=== PATIENT | male | born 1970 | race Caucasian/White ===

== ENCOUNTER 2018-07-28 01:13 | Inpatient (IN) | payer OTHER ==
[~2018-07-28] VITALS: Ht 175.3 cm; Wt 156.5 kg
[2018-07-28 01:25] VITALS: BP 136/81
--- NOTE | 2018-07-28 01:25 | NUR ---
BILL RECAPITULATION CLERK ADMISSION NOTES RECEIVED PATIENT DIRECT ADMIT FROM FROM [facility] WITH DX. CHEST PAIN. PATIENT IS ALERT AND ORIENTED X4, VERBALLY RESPONSIVE, ABLE TO MAKE NEEDS KNOWN. ([place]) AT BEDSIDE. BREATHING EVEN AND UNLABORED. NO SOB NOTED. LUNGS CLEAR TO AUSCULTATION. TOLERATING ROOM AIR. NO COMPLAINTS OF PAIN OR DISCOMFORT. NO FACIAL GRIMACING. IV ON LEFT HAND G#20 INTACT AND PATENT. SKIN DRY AND WARM TO TOUCH. AFEBRILE. EXPLAINED THE PROCESS OF ADMISSION - SKIN ASSESSMENT RENDERED. PER PATIENT HE HAS NO SKIN ISSUES - NO OBVIOUS SKIN ISSUES NOTED ALSO. ORIENTED TO THE USE OF UNIT AMENITIES. BELONGINGS ACCOUNTED FOR. WILL TAKE MEDICATIONS HOME. VITAL SIGNS STABLE. ALL OTHER NEEDS ATTENDED TO. SAFETY MEASURES IN PLACE. CALL LIGHT WITHIN REACH. WILL CONTINUE TO MONITOR.
[2018-07-28] MEDS ORDERED: LOSA1TAB42 PO (02:05)
[2018-07-28] MEDS ORDERED: AMLO5TAB9 PO (02:05)
[2018-07-28] MEDS ORDERED: ATOR40TA PO (02:05)
[2018-07-28] MEDS ORDERED: ASPI-1169 PO (02:05)
[2018-07-28] MEDS ORDERED: Z GUARD REMEDY 2 OZ OINT TP PRN (02:30)
[2018-07-28] MEDS ORDERED: HYDROCODONE/APAP 5/325MG 1 EACH TABLET PO PRN (02:30)
[2018-07-28] MEDS ORDERED: MAG HYDROX/AL HYDROX/SIMETH 30 ML UDC PO PRN (02:30)
[2018-07-28] MEDS ORDERED: ONDANSETRON HCL/PF 4 MG/2 ML VIAL IVP PRN (02:30)
[2018-07-28] MEDS ORDERED: ACETAMINOPHEN 325 MG TABLET PO PRN (02:30)
[2018-07-28] MEDS ORDERED: MAGNESIUM HYDROXIDE 30 ML UDC PO PRN (02:30)
[2018-07-28 04:00] VITALS: BP 138/77
[2018-07-28 04:00] LABS: BASOPHILS # (AUTO) 0.1 /CMM (0.0-0.2); BASOPHILS % (AUTO) 0.8 % (0.0-2.0); EOSINOPHILS % (AUTO) 3.5 % (0.0-6.0); HEMATOCRIT 46 % (39-51); HEMOGLOBIN 15.5 g/dL (13.5-17.5); LYMPHOCYTES # (AUTO) 3.3 /CMM (0.8-4.8); LYMPHOCYTES % (AUTO) 32.5 % (20.0-44.0); MEAN CORPUSCULAR HGB CONC 34 g/dl (31.0-36.0); MEAN CORPUSCULAR VOLUME 83 fL (80-96); MONOCYTES # (AUTO) 0.7 /CMM (0.1-1.30); MONOCYTES % (AUTO) 7.5 % (2.0-12.0); NEUTROPHILS # (AUTO) 5.6 /CMM (1.8-8.9); NEUTROPHILS % (AUTO) 55.7 % (43.0-81.0); PLATELET COUNT (AUTO) 205 /CMM (150-450); RED BLOOD CELL COUNT(AUTO) 5.49 MIL/uL (4.5-6.0)
[2018-07-28] MEDS ORDERED: ENOXAPARIN SODIUM 40 MG/0.4 ML DISP.SYRIN SQ ONE (04:00)
[2018-07-28 04:09] LABS: CALCIUM, SERUM 8.6 mg/dL (8.5-10.1); CARBON DIOXIDE 25 mmol/L (21-32); CHLORIDE 105 mmol/L (98-107); CREATININE 1.3 mg/dL (0.6-1.3); GLUCOSE 120 mg/dL (74-106); POTASSIUM 3.4 mmol/L (3.5-5.1); SODIUM SERUM 139 mmol/L (136-145); UREA NITROGEN, BLOOD 15 mg/dL (7-18)
[2018-07-28 04:15] LABS: ALANINE AMINOTRANSFERASE 47 U/L (12-78); ALBUMIN 2.9 g/dL (3.4-5.0); ALKALINE PHOSPHATASE 83 U/L (46-116); ASPARTATE AMINOTRANSFERASE 15 U/L (15-37); BILIRUBIN,TOTAL 0.4 mg/dL (0.2-1.0); TOTAL PROTEIN, SERUM 6.8 g/dL (6.4-8.2)
--- NOTE | 2018-07-28 06:53 | NUR ---
[employer] SPOTTER CLOSING NOTES PATIENT RESTING IN BED. NO ACUTE CHANGES THROUGHOUT SHIFT. BREATHING EVEN AND UNLABORED. NO SOB NOTED. TOLERATING ROOM AIR. NO COMPLAINTS OF PAIN OR DISCOMFORT. NO FACIAL GRIMACING. IV ON LEFT HAND INTACT AND PATENT. SKIN DRY AND WARM TO TOUCH. AFEBRILE ALL OTHER NEEDS ATTENDED TO. SAFETY MEASURES IN PLACE. CALL LIGHT WITHIN REACH. WILL ENDORSE TO ONCOMING NURSE FOR TANI.
--- NOTE | 2018-07-28 07:37 | NUR ---
RURAL MAIL CARRIER NOTES PATIENT RESTING IN BED, ALERT AND ORIENTED X4. NO RESPIRATORY DISTRESS NOTED, BREATHING EVEN AND UNLABORED. SKIN WARM TO TOUCH. IV SL ON LT HAND #20G, PATENT AND INTACT, NO REDNESS, NO INFILTRATION. PATIENT'S BED ON LOW AND LOCKED POSITION. CALL LIGHT WITHIN REACH. WILL CONTINUE TO MONITOR.
[2018-07-28 08:38] VITALS: BP 144/76
[2018-07-28] MEDS ORDERED: ASPIRIN 81 MG TAB.CHEW PO SCH (09:00)
[2018-07-28] MEDS ORDERED: HYDROCHLOROTHIAZIDE 25 MG TABLET PO SCH (09:00)
[2018-07-28] MEDS ORDERED: LOSARTAN POTASSIUM 50 MG TABLET PO SCH (09:00)
[2018-07-28] MEDS ORDERED: AMLODIPINE BESYLATE 5 MG TABLET PO SCH (09:00)
[2018-07-28] MEDS ORDERED: HYDROCHLOROTHIAZIDE 12.5 MG CAPSULE PO SCH (09:00)
[2018-07-28] MEDS ORDERED: Medication Not On Formulary EA (Losartan/Hydrochlorothiazide (Losartan-Hctz 100-12.5 Mg PO SCH (09:00)
[2018-07-28] MEDS ORDERED: POTASSIUM CHLORIDE 20 MEQ TAB.PRT.SR PO SCH (10:30)
[2018-07-28] MEDS ORDERED: IOHEXOL-350 100 ML VIAL IV ONE (10:41)
[2018-07-28] MEDS ORDERED: IV NS 0.9% 250 ML IV ONE (10:41)
[2018-07-28] MEDS ORDERED: CT SWABBABLE VALVE TRANS SET 1 EA INFUS.SET MC ONE (10:41)
[2018-07-28] MEDS ORDERED: METOPROLOL TARTRATE INJ 5 MG/5 ML AMPUL ONE (10:41)
[2018-07-28] MEDS ORDERED: NITROGLYCERIN 4.9 GM SPRAY ONE (10:47)
[2018-07-28] MEDS ORDERED: METOPROLOL TARTRATE INJ 5 MG/5 ML AMPUL IVP ONE (11:00)
[2018-07-28] MEDS ORDERED: NITROGLYCERIN 4.9 GM SPRAY SL ONE (11:00)
[2018-07-28] MEDS ORDERED: IV NS 0.9% 500 ML IV ONE (11:00)
--- NOTE | 2018-07-28 11:45 | NUR ---
MS/RN - [place] IV/NITRO MEDICATIONS FOR CTCA PROCEDURE.
[2018-07-28] MEDS: METOPROLOL TARTRATE 50 MG TABLET PO SCH ×2 (12:00→18:00)
[2018-07-28] MEDS ORDERED: POTASSIUM CHLORIDE 20 MEQ TAB.PRT.SR PO ONE (13:00)
[2018-07-28 17:31] VITALS: BP 118/63
[2018-07-28 18:00] VITALS: BP 118/63
--- NOTE | 2018-07-28 18:06 | NUR ---
MS/RN - Discharge Patient alert and oriented throughout the shift, CTCA is negative, discharged home in stable condition, remain afebrile, denies chest pain/numbness, no c/o dizziness, not in any form of distress, ambulates with steady gait. Reviewed discharge instructions with patient and he verbalized full understanding of all teachings including home medications/prescriptions, regulate his stress level and follow-up care with his PCP within one week. Seek immediate medical attention for worsening symptoms, chest pain, shortness of breath, palpitations, abdominal pain/distention, intractable, nausea and vomiting, diarrhea, hematochezia, melena, weakness, loss of consciousness, neurological deficit, or any other emergent concerns. All belongings with patient and he deny any missing items. Patient refused photos to be taken of skin, no breakdown noted. Saline lock removed on the right AC and left hand both with catheter tip intact, no redness, no swelling noted at the site. Discharge paperwork signed and copies were given per protocol. Accompanied to the lobby and transported by private car by Anali.
[2018-07-28] MEDS ORDERED: ATORVASTATIN 40 MG TABLET PO SCH (22:00)
[2018-07-29] MEDS ORDERED: ENOXAPARIN SODIUM 40 MG/0.4 ML DISP.SYRIN SQ SCH (09:00)
== END 2018-07-28 18:20 | disposition home or self-care (01) | DRG 305 ==
LOC: TELE 01:13 → MED 14:37
PROVIDERS: ADMIT Nurse Practitioner Acute Care; ATTEND Nurse Practitioner Acute Care
DX: I10 Essential (primary) hypertension (principal); E44.1 Mild protein-calorie malnutrition; D68.59 Other primary thrombophilia; E66.01 Morbid (severe) obesity due to excess calories; E78.5 Hyperlipidemia, unspecified; Z79.82 Long term (current) use of aspirin; Z79.899 Other long term (current) drug therapy; E87.6 Hypokalemia; Z82.49 Family history of ischemic heart disease and other diseases of the circulatory system; I25.10 Atherosclerotic heart disease of native coronary artery without angina pectoris
CPT/HCPCS: 36415; 75574; 80053-TC; 84484-TC; 85025-TC; 87081-TC; G0378; J1650; J3490; J7050; Q9967